=== PATIENT | female | born 1955 | race African-American/Black ===

== ENCOUNTER → 2018-01-26 | Outpatient (CLI) | payer OTHER | LOC: CFH 09:17 | PROVIDERS: ATTEND Obstetrics & Gynecology Gynecology | DX: Z02.9 Encounter for administrative examinations, unspecified (principal) ==

== ENCOUNTER → 2018-02-06 | Outpatient (CLI) | payer OTHER ==
[~2018-02-06] MED LIST: AMLO1CAP10 PO; AMLO5TAB2 PO; POTA10CA PO; TRIA1CAP3 PO; TRIA50CA PO
[2018-02-06 09:35] LABS: MICROSCOPIC NOT IND
[2018-02-06 09:36] LABS: CULTURE INDICATED? NO
[2018-02-06 09:47] LABS: ALANINE AMINOTRANSFERASE 22 U/L (12-78); ALBUMIN 3.7 g/dL (3.4-5.0); ANION GAP 6 mmol/L (5-15); CHLORIDE 106 mmol/L (98-107); CREATININE 1.65 mg/dL (0.55-1.02)
[2018-02-06 09:50] LABS: ALKALINE PHOSPHATASE 124 U/L (45-117); BILIRUBIN,TOTAL 0.5 mg/dL (0.2-1.0); TOTAL PROTEIN 8.4 g/dL (6.4-8.2)
== END | disposition home or self-care (01) ==
LOC: STAR 08:19
PROVIDERS: ATTEND Obstetrics & Gynecology Gynecology
DX: Z01.818 Encounter for other preprocedural examination (principal)
CPT/HCPCS: 36415; 71046; 80053; 81003; 85014; 85018; 93005

== ENCOUNTER 2018-02-14 05:44 | Observation (INO) | payer OTHER ==
[~2018-02-14] VITALS: Ht 162.6 cm; Wt 85.6 kg
[2018-02-14] MEDS ORDERED: LACTATED RINGERS 1,000 ML IV SCH (06:12)
[2018-02-14 06:16] VITALS: BP 143/85
[2018-02-14] MEDS ORDERED: BUPIVACAINE/PF 0.25% ONE (07:09)
[2018-02-14] MEDS ORDERED: FENTANYL PF 250 MCG/5ML ONE (07:09)
[2018-02-14] MEDS ORDERED: MIDAZOLAM 1 MG/ML, 2ML ONE (07:09)
[2018-02-14] MEDS ORDERED: ESTROGENS CONJUGATED VAG CRM 0.625MG/1G, 30GM ONE (07:09)
[2018-02-14] MEDS ORDERED: PROPOFOL 10 MG/ML, 20ML ONE (07:10)
[2018-02-14] MEDS ORDERED: LIDOCAINE-MPF 2% ,5ML ONE (07:10)
[2018-02-14] MEDS ORDERED: FLUORESCEIN SODIUM 500 MG/5 ML ONE (07:10)
[2018-02-14] MEDS ORDERED: EPINEPHRINE 1 MG/ML, 1ML ONE (07:10)
[2018-02-14] MEDS ORDERED: ROCURONIUM 10 MG/ML,10ML ONE (07:11)
[2018-02-14] MEDS ORDERED: PHENYLEPHRINE 10 MG/ML ONE (07:12)
[2018-02-14] MEDS ORDERED: DEXAMETHASONE 4 MG/ML, 1ML ONE ×2 (07:13)
[2018-02-14] MEDS ORDERED: CEFOTETAN 2 GM ONE (07:29)
[2018-02-14] MEDS ORDERED: DIPHENHYDRAMINE 50 MG/ML, 1ML ONE (07:29)
[2018-02-14] MEDS ORDERED: NEOSTIGMINE 1 MG/ML, 10ML ONE (07:29)
[2018-02-14] MEDS ORDERED: GLYCOPYRROLATE 0.2MG/1ML, 5ML ONE (07:29)
[2018-02-14] MEDS ORDERED: OxyconTIN ER 10 MG TAB.ER PO ONE (07:30)
[2018-02-14] MEDS ORDERED: ACETAMINOPHEN 500 MG TABLET PO ONE (07:30)
[2018-02-14] MEDS ORDERED: ONDANSETRON ODT 8 MG PO ONE (07:30)
[2018-02-14] MEDS ORDERED: GABAPENTIN 300 MG CAPSULE PO ONE (07:30)
[2018-02-14] MEDS ORDERED: FAMOTIDINE 20 MG TABLET PO ONE (07:30)
[2018-02-14] MEDS ORDERED: BUPIVACAINE/PF-EPI 0.25% 1:200K IM ONE (08:53)
[2018-02-14] MEDS ORDERED: INDIGO CARMINE 0.8%, 5ML ONE (09:22)
[2018-02-14] MEDS ORDERED: hydrALAzine 20 MG/ML, 1ML IV PRN (10:00)
[2018-02-14] MEDS ORDERED: METOCLOPRAMIDE 5 MG/ML, 2ML IV PRN (10:00)
[2018-02-14] MEDS ORDERED: MEPERIDINE/PF 25MG/0.5ML IVPush PRN (10:00)
[2018-02-14] MEDS ORDERED: OXYcodone 5 MG/5 ML ORAL.SOL UDC PO PRN (10:00)
[2018-02-14] MEDS ORDERED: FENTANYL PF 100 MCG/2ML IV PRN (10:00)
[2018-02-14] MEDS ORDERED: LABETALOL 5MG/ML, 20ML IV PRN (10:00)
[2018-02-14] MEDS ORDERED: morphine SULFATE 10 MG/ML, 1ML IV PRN ×2 (10:00→12:00)
[2018-02-14] MEDS ORDERED: PROMETHAZINE 25 MG/ML, 1ML IV PRN (10:00)
[2018-02-14 11:15] VITALS: BP 111/61
[2018-02-14] MEDS: IBUPROFEN 600 MG TABLET PO SCH ×3 (11:35→21:19)
[2018-02-14] MEDS ORDERED: ACETAMINOPHEN 650 MG SUPP PR PRN (12:00)
[2018-02-14] MEDS ORDERED: ACETAMINOPHEN 325 MG TABLET PO PRN (12:00)
[2018-02-14] MEDS ORDERED: OXYcodone/APAP 5/325MG TABLET PO PRN (12:00)
[2018-02-14 14:00] VITALS: BP 122/61
[2018-02-14] MEDS: POTASSIUM CHLORIDE 10 MEQ TABLET.ER PO SCH (15:37)
[2018-02-14] MEDS: TRIAMTERENE-HCTZ 37.5/25 MG TABLET PO SCH (15:37)
[2018-02-14] MEDS: BENAZEPRIL 20 MG TABLET PO SCH (15:38)
[2018-02-14] MEDS: SIMETHICONE 80 MG CHEW TAB PO SCH ×2 (15:41→21:19)
[2018-02-14] MEDS: D5%-0.45% NACL 1,000 ML IV SCH (15:41)
[2018-02-14] MEDS: AMLODIPINE 5 MG TABLET PO SCH (15:41)
[2018-02-14 19:54] VITALS: BP 136/65
[2018-02-14] MEDS ORDERED: ZOLPIDEM 5MG TABLET PO PRN (21:00)
[2018-02-15 00:11] VITALS: BP 125/70
[2018-02-15] MEDS: D5%-0.45% NACL 1,000 ML IV SCH ×2 (01:33→04:00)
[2018-02-15 04:07] VITALS: BP 104/63
[2018-02-15] MEDS: IBUPROFEN 600 MG TABLET PO SCH (06:00)
[2018-02-15 07:00] VITALS: BP 112/70
[2018-02-15] MEDS: AMLODIPINE 5 MG TABLET PO SCH (08:16)
[2018-02-15] MEDS: TRIAMTERENE-HCTZ 37.5/25 MG TABLET PO SCH (08:16)
[2018-02-15] MEDS: BENAZEPRIL 20 MG TABLET PO SCH ×2 (08:16→08:21)
[2018-02-15] MEDS: POTASSIUM CHLORIDE 10 MEQ TABLET.ER PO SCH (08:17)
[2018-02-15] MEDS: SIMETHICONE 80 MG CHEW TAB PO SCH (08:17)
[2018-02-15] MEDS ORDERED: HYDR-882 PO (09:46)
== END 2018-02-15 10:21 | disposition home or self-care (01) ==
LOC: OUT 05:44 → 4NOR 11:10 → OUT 11:22 → 4NOR 11:23 → DCLOUNGE 02-15 10:10
PROVIDERS: ADMIT Obstetrics & Gynecology Gynecology; ATTEND Obstetrics & Gynecology Gynecology
DX: N85.02 Endometrial intraepithelial neoplasia [EIN] (principal); N73.6 Female pelvic peritoneal adhesions (postinfective); I10 Essential (primary) hypertension
CPT/HCPCS: 36415; 58552; 85014; 85018; 88307; G0378; J0171; J1100; J1200; J2250; J2370; J2704; J2710; J3010; J3490; J7120; Q0162; S0074